=== PATIENT | female | born 1975 | race Caucasian/White ===

== ENCOUNTER 2023-04-21 07:59 | Outpatient (CLI) | payer MEDICAID ==
--- NOTE | 2023-04-21 11:25 | XRAY Report ---
PROCEDURE: Knee 4 View RT INDICATIONS: KNEE PAIN,RIGHT TECHNIQUE: 3 views of the knee was obtained. COMPARISON: None FINDINGS: Bones: No fractures or dislocations. No suspicious bony lesions. Soft tissues: Small knee joint effusion. No suspicious soft tissue calcifications or masses. IMPRESSION: Small joint effusion. Otherwise unremarkable radiographs Reviewed by: Clint Ma MD on 04/21/2023 10:24 AM [facility] Approved by: Clint Ma MD on 04/21/2023 10:24 AM [facility] Station ID: [id number]
== END 2023-04-21 08:00 | disposition home or self-care (01) ==
LOC: DI 07:59
PROVIDERS: ATTEND Nurse Practitioner
DX: M25.561 Pain in right knee (principal); M25.461 Effusion, right knee